=== PATIENT | female | born 1995 | race African-American/Black ===

== ENCOUNTER 2024-12-17 01:55 | Emergency (ER) | payer MEDICAID ==
[~2024-12-17] VITALS: Ht 170.2 cm; Wt 55.0 kg
[2024-12-17 02:15] VITALS: O2SAT 98
[2024-12-17 03:19] LABS: BASOPHILS % 0.2 % (0.0-2.0); EOSINOPHILS % 0.0 % (0.0-5.0); HEMATOCRIT. 36.6 % (36.0-48.0); HEMOGLOBIN. 12.4 g/dL (12.0-16.0); LYMPHOCYTES % 8.1 % (20.0-50.0); MEAN PLATELET VOLUME 8.5 fl (7.4-10.4); MONOCYTES % 3.1 % (2.0-8.0); NEUTROPHILS % 88.6 % (40.0-76.0); PLATELET 196 x1000/uL (130-400); RED BLOOD CELL COUNT 3.98 mill/uL (4.2-5.4); RED CELL DISTRIBUTION WIDTH 13.0 % (11.6-14.6)
[2024-12-17 03:35] LABS: CREATININE 1.0 mg/dL (0.6-1.0); UREA NITROGEN BLOOD 10 mg/dL (9-23)
[2024-12-17] MEDS: ACETAMINOPHEN 1000MG/100ML 100 ML IV ONE (07:07)
[2024-12-17] MEDS: METOCLOPRAMIDE HCL 10MG/2ML VIAL IV ONE (07:07)
[2024-12-17] MEDS: LACTATED RINGERS 1,000 ML IV SCH (07:08)
[2024-12-17] MEDS: KETOROLAC 15MG/ML VIAL IV ONE (09:27)
[2024-12-17 10:14] LABS: CLARITY URINE CLOUDY (CLEAR); COLOR URINE YELLOW (YELLOW); GLUCOSE URINE NEGATIVE (NEGATIVE); KETONES URINE 1+ (NEGATIVE); LEUKOCYTE ESTERASE URINE NEGATIVE (NEGATIVE); NITRITE URINE POSITIVE (NEGATIVE); OCCULT BLOOD URINE TRACE (NEGATIVE); PH URINE 5.5 (4.5-8.0); PROTEIN URINE NEGATIVE (NEGATIVE); SPECIFIC GRAVITY URINE 1.018 (1.005-1.030); UROBILINOGEN URINE 0.2 E.U./dL (0.2-1.0)
[2024-12-17] MEDS ORDERED: CEFP100T8 MT (10:28)
[2024-12-17 10:30] VITALS: BP 108/68; PULSE 76; RESP 18; TEMP 36.7; O2SAT 99
[2024-12-17 10:32] LABS: BACTERIA URINE 4+; RBC URINE 0-2 /hpf (0-2); SQUAMOUS EPITHELIAL CELL URINE 3+ /lpf (RARE/1+); YEAST URINE NONE SEEN
== END 2024-12-17 10:47 | disposition home or self-care (01) ==
LOC: ER 01:55
DX: R51.9 Headache, unspecified (principal); N39.0 Urinary tract infection, site not specified; R11.2 Nausea with vomiting, unspecified; R19.7 Diarrhea, unspecified; J45.909 Unspecified asthma, uncomplicated
CPT/HCPCS: 80048; 81003; 81025; 85025; 36415; 70450; 96361; 96365; 96375; 99285; J1885; J2765; Z7610 ×5; A4606; J0131